=== PATIENT | female | born 1950 ===

== ENCOUNTER 2021-06-04 13:47 | Emergency (ER) | payer SELFPAY ==
--- NOTE | 2021-06-04 14:04 | EDM.PDOC ---
ED HPI GENERAL MEDICAL PROBLEM - General Stated Complaint: [id number] LEFT HIP PAIN FELL ON IT Time Seen by Provider: 06/04/21 14:02 Source of Information: Reports: Patient, RN, RN Notes Reviewed History Limitations: Reports: No Limitations - History of Present Illness INITIAL COMMENTS - FREE TEXT/NARRATIVE: Disha is a 70 y/o female who presents to the ED via personal vehicle with complaints of left hip pain. The patient reports she fell onto her left hip approximately one hour prior to her arrival at this facility. She notes she was walking on wet concrete and slipped. She did not hit her head or lose consciousness during the event. She denies history of injury to the extremity. She denies loss of sensory function to the extremity, incontinence of bowel/bladder, or saddle paresthesia. She has not taken any medications for her pain which she rates at a 1/10 while at rest and a 9/10 with mobility of the joint or weight bearing. Left Hip Pain Score (Numeric/FACES): 10 - Related Data Allergies Allergy/AdvReac Type Severity Reaction Status Date / Time azithromycin Allergy Cannot Verified 06/04/21 14:26 Remember Sulfa (Sulfonamide Allergy Cannot Verified 06/04/21 14:26 Antibiotics) Remember sulfamethoxazole Allergy Cannot Verified 06/04/21 14:26 [From Bactrim] Remember trimethoprim [From Bactrim] Allergy Cannot Verified 06/04/21 14:26 Remember Review of Systems - Review of Systems Review Of Systems: Comprehensive ROS is negative, except as noted in HPI. ED EXAM, GENERAL - Physical Exam Exam: See Below Exam Limited By: No Limitations General Appearance: Alert, No Apparent Distress Eye Exam: Bilateral Eye: EOMI, Normal Inspection, PERRL (3mm) Nose: Normal Inspection, Normal Mucosa, No Blood Throat/Mouth: Normal Inspection, Normal Oropharynx, Normal Voice, No Airway Compromise Head: Atraumatic, Normocephalic Neck: Normal Inspection, Supple, Non-Tender, Full Range of Motion Respiratory/Chest: No Respiratory Distress, Lungs Clear, Normal Breath Sounds, No Accessory Muscle Use, Chest Non-Tender Cardiovascular: Normal Peripheral Pulses, Regular Rate, Rhythm, No Edema, No Gallop, No JVD, No Murmur, No Rub Peripheral Pulses: 1+: Posterior Tibial (L), Posterior Tibial (R), 2+: Radial (L), Radial (R), Dorsalis Pedis (L), Dorsalis Pedis (R) GI/Abdominal: Normal Bowel Sounds, Soft, Non-Tender, No Distention, No Abnormal Bruit, No Mass, Pelvis Stable (Female) Exam: Deferred Rectal (Female) Exam: Deferred Back Exam: Normal Inspection, Full Range of Motion. No: Muscle Spasm, Paraspinal Tenderness, Vertebral Tenderness Extremities: Normal Capillary Refill, Leg Pain (To anterior left hip), Limited Range of Motion (To left extremity). No: Joint Swelling, Increased Warmth, Pallor, Redness Neurological: Alert, Oriented, CN II-XII Intact, Normal Cognition, Normal Reflexes, No Motor/Sensory Deficits, Abnormal Gait (Patient unable to bear weight on left lower extremity d/t pain) Psychiatric: Normal Affect, Normal Mood Skin Exam: Warm, Dry, Intact, Normal Color, No Rash. No: Cyanosis, Ecchymosis, Erythema, Jaundice, Mottled, Pallor, Petechiae Course - Vital Signs Last Recorded V/S: Last Vital Signs Temp 97.6 F 06/04/21 13:53 Pulse 60 06/04/21 13:53 Resp 18 06/04/21 13:53 BP 111/49 L 06/04/21 13:53 Pulse Ox 99 06/04/21 13:53 - Orders/Labs/Meds Meds: Medications Discontinued Medications Generic Name Dose Route Start Last Admin Trade Name Freq PRN Reason Stop Dose Admin Hydromorphone HCl 1 mg 06/04/21 15:21 06/04/21 16:04 Hydromorphone 1 Mg/Ml Syringe IM 06/04/21 15:22 1 mg ONETIME ONE Administration - Re-Assessments/Exams Free Text/Narrative Re-Assessment/Exam: 06/04/21 Xray of left hip and pelvis obtained. CT of left hip and pelvis obtained for further evaluation or possible pubic ramus fracture. Case discussed with Dr. Farias, orthopedic surgeon at [facility], who states the pelvic fracture (nondisplaced inferior pelvic ramus and left ominate bone) is nonsurgical and recommends pain management and PT referral. Findings of examination, imaging, and discussion with Dr. Farias reviewed with patient and . As patient is not from the area she is requesting to not be admitted for pain management. Patient able to walk with walker around the unit. Will treat acute pain with Percocet. Patient instructed to follow up with PCP and PT when she gets home. Red flag signs and symptoms which would warrant reevaluation reviewed. Patient verbalized understanding and agreement with the plan of care. Departure - Departure Time of Disposition: 17:15 Disposition: Home, Self-Care 01 Condition: Good Clinical Impression: Fall from ground level Inferior pubic ramus fracture Qualifiers: Encounter type: initial encounter Fracture type: closed Laterality: left Qualified Code(s): S32.592A - Other specified fracture of left pubis, initial encounter for closed fracture Closed fracture of innominate bone Qualifiers: Encounter type: initial encounter Qualified Code(s): S32.309A - Unspecified fracture of unspecified ilium, initial encounter for closed fracture - Discharge Information *PRESCRIPTION DRUG MONITORING PROGRAM REVIEWED*: Not Applicable *COPY OF PRESCRIPTION DRUG MONITORING REPORT IN PATIENT SHANE: Not Applicable Instructions: Simple Pelvic Fracture, Adult Forms: ED Department Discharge Additional Instructions: Rx: Percocet Rx: Isamar ENGLE 1.) Follow up with your primary care provider for referral to physical therapy, once home. 2.) Should you develop numbness, tingling, or increased pain that does not dissipate with mobility or walking, follow up immediately. 3.) You may take an additional acetaminophen (Tylenol) 325mg with your Percocet. You may also take ibuprofen (Motrin, Advil) 400mg every six hours for pain. You may stagger these medications so you are receiving a dose every three hours. 4.) You may apply ice to the affected area, as pain persists.
--- NOTE | 2021-06-04 15:08 | CR ---
EXAMINATION: Hip Min 2V w Pelvis Lt SEX: Female AGE: 70 years CLINICAL HISTORY: 70-year-old female injured in fall (left hip onto concrete). No comparison films immediately available. Patient has difficulty moving hip. Interpretation: AP pelvis/hips and cone-down AP view of the left hip reveals apparent nondisplaced left inferior pubic ramus fracture. (Point tenderness?) No sign of either hip fracture or dislocation. Symmetric spacing normal-appearing SI and hip joints without arthritic degenerative change. No other fracture identified in the pelvic ring.
[2021-06-04] MEDS ORDERED: HYDROmorphone 1 MG/ML Syringe IM ONE (15:21)
--- NOTE | 2021-06-04 15:57 | CT ---
EXAMINATION: Pelvis wo Cont SEX: Female AGE: 70 years CLINICAL HISTORY: 70-year-old female injured in fall, onto left hip (fall on concrete); r/o pelvis fracture. INTERPRETATION: Abnormal. 1. Nondisplaced fractures left hemipelvis (inferior pubic ramus anteriorly and innominate bone i.e. superior acetabular portion of the left hip). 2. Chronic lower lumbar disc disease and arthritic changes of the spine. 3. Symmetric spacing normal-appearing SI and hip joints. No arthritic degenerative changes. 4. No pathologic skeletal lesion, other pelvic or either hip fracture/dislocation. 5. No foreign bodies. 6. No pelvic hematoma.
--- NOTE | 2021-06-04 15:58 | CT ---
EXAMINATION: Hip wo Cont Lt SEX: Female AGE: 70 years CLINICAL HISTORY: 70-year-old female Fall onto left hip; r/o pelvis fracture INTERPRETATION: Abnormal. 1. Nondisplaced fractures of the innominate bone the left hemipelvis and ipsilateral inferior pubic ramus. 2. No pelvic hematoma, other pelvic or either hip fracture/dislocation.
== END 2021-06-04 17:31 | disposition home or self-care (01) ==
LOC: DL.ED 13:47
DX: S32.592A Other specified fracture of left pubis, initial encounter for closed fracture (principal); S32.302A Unspecified fracture of left ilium, initial encounter for closed fracture; Z88.1 Allergy status to other antibiotic agents; Z88.2 Allergy status to sulfonamides; W01.0XXA Fall on same level from slipping, tripping and stumbling without subsequent striking against object, initial encounter; Y93.01 Activity, walking, marching and hiking
CPT/HCPCS: 72192; 73700-LT; 96372; 99284; 99284-25; J1170